=== PATIENT | male | born 1945 | race Hispanic/Latino ===

== ENCOUNTER → 2018-07-01 | Outpatient (CLI) | payer MEDICARE ==
[~2018-07-01] MED LIST: AMIO400T4 PO; APIX5TAB PO; ASPI-1197 PO; ATOR10TA69 PO; IOHEXOL-350 50ML VIAL IV ONE; METO-408 PO; RAMI10CA69 PO; SEPTRA DS PO
== END | disposition home or self-care (01) ==
LOC: OIH 10:10
PROVIDERS: ATTEND Internal Medicine Cardiovascular Disease
DX: I71.4 Abdominal aortic aneurysm, without rupture (principal); I70.0 Atherosclerosis of aorta; I51.7 Cardiomegaly
CPT/HCPCS: 74174; Q9967

== ENCOUNTER 2018-11-20 05:43 | Day surgery (SDC) | payer MEDICARE ==
[2018-11-18 13:06] LABS: CREATININE 1.6 mg/dL (0.5-1.5); POTASSIUM 5.2 mmol/L (3.5-5.1)
[2018-11-18 13:08] LABS: INR 1.06 (0.85-1.15); PARTIAL THROMBOPLASTIN TIME 32.8 SEC (26.3-35.5); PROTHROMBIN TIME 11.1 SEC (9.6-11.6)
[2018-11-18 13:22] VITALS: BP 103/59
[2018-11-18 13:32] LABS: BILIRUBIN,URINE Negative (NEGATIVE); COLOR,URINE Yellow (YELLOW); GLUCOSE, URINE (UA) Negative (NEGATIVE); KETONES,URINE Negative (NEGATIVE); LEUKOCYTE ESTERASE ,URINE Negative (NEGATIVE); NITRATE,URINE Negative (NEGATIVE); OCCULT BLOOD,URINE Negative (NEGATIVE); PROTEIN,URINE Negative (NEGATIVE)
[2018-11-18 13:33] LABS: APPEARANCE,URINE CLEAR (CLEAR)
[2018-11-18 13:38] LABS: BASOPHILS % (AUTO) 0.7 % (0.0-5.0); EOSINOPHILS % (AUTO) 0.1 % (0.0-8.0); HEMATOCRIT 32.3 % (42-54); MEAN CORPUSCULAR HEMOGLOBIN 23.6 pg (27.0-33.0); MEAN CORPUSCULAR VOLUME 76.3 fL (79-99); MONOCYTES % (AUTO) 10.3 % (3.0-13.0); NEUTROPHILS % (AUTO) 65.9 % (40.0-77.0); PLATELET COUNT (AUTO) 388 K/uL (130-400); RED BLOOD CELL COUNT(AUTO) 4.23 MIL/uL (4.50-6.20); RED CELL DISTRIBUTION WIDTH 26.7 % (11.0-15.5); WHITE BLOOD COUNT (AUTO) 8.6 K/uL (4.8-10.8)
--- NOTE | 2018-11-19 10:20 | NUR ---
NOTE REPORTED K+ AND BUN/CREAT TO JOSE SO, NO FURTHER ORDERS GIVEN.
[2018-11-20] VITALS (12 sets, daily range): BP systolic 80–123; BP diastolic 46–60
[~2018-11-20] VITALS: Ht 170.2 cm; Wt 56.4 kg
[~2018-11-20 05:43] MED LIST changes: +AMIO200T5 PO; -AMIO400T4 PO; -ASPI-1197 PO; +FURO40TA5 PO; -IOHEXOL-350 50ML VIAL IV ONE; -METO-408 PO; -RAMI10CA69 PO; -SEPTRA DS PO; +SODIUM CHLORIDE 0.9% 500ML 500 ML IV SCH; +SPIR25TA PO
[2018-11-20] MEDS ORDERED: SODIUM CHLORIDE 0.9% 1000ML 1,000 ML IV ONE (06:22)
[2018-11-20] MEDS ORDERED: HEPARIN SODIUM 1000UNIT/ML 10ML VIAL ONE (09:14)
[2018-11-20] MEDS ORDERED: SODIUM BICARB 50MEQ 50ML VIAL ONE (09:14)
[2018-11-20] MEDS ORDERED: LIDOCAINE HCL 1% 20 ML VIAL ONE (09:14)
[2018-11-20] MEDS ORDERED: IODIXANOL 320 MG/ML 100 ML VIAL ONE (09:15)
[2018-11-20] MEDS ORDERED: NITROGLYCERIN 5 MG/ML 10 ML VIAL IV ONE (09:15)
[2018-11-20] MEDS ORDERED: MEPERIDINE-PF 25 MG/ML SYG ONE (09:40)
[2018-11-20] MEDS ORDERED: MIDAZOLAM HCL 1 MG/ML 2ML VIAL ONE (09:40)
[2018-11-20] MEDS ORDERED: SODIUM CHLORIDE 0.9% 1000ML 1,000 ML IV SCH (10:23)
== END 2018-11-20 16:15 | disposition home or self-care (01) ==
LOC: DAH 05:43
PROVIDERS: ATTEND Internal Medicine Cardiovascular Disease
DX: I77.4 Celiac artery compression syndrome (principal); K55.1 Chronic vascular disorders of intestine; Z79.01 Long term (current) use of anticoagulants
CPT/HCPCS: 36245 ×2; 36415; 71045; 75726 ×2; 80048; 81003; 85025; 85610; 85730; 93005; A4606; C1769 ×2; C1887; C1894 ×2; J1644 ×2; J2175; J2250; J3490 ×2; J7030; Q9967; 75774; 99156; 99157

== ENCOUNTER 2019-05-14 06:00 | Day surgery (SDC) | payer MEDICARE ==
[2019-05-12 13:22] VITALS: BP 100/71
[2019-05-12 13:24] LABS: BASOPHILS % (AUTO) 0.9 % (0.0-5.0); EOSINOPHILS % (AUTO) 1.9 % (0.0-8.0); HEMATOCRIT 45.1 % (42-54); LYMPHOCYTES % (AUTO) 14.8 % (21.0-51.0); MEAN CORPUSCULAR HEMOGLOBIN 29.2 pg (27.0-33.0); MEAN CORPUSCULAR HGB CONC 32.9 g/dL (32.0-36.0); MEAN CORPUSCULAR VOLUME 88.6 fL (79-99); MONOCYTES % (AUTO) 11.9 % (3.0-13.0); NEUTROPHILS % (AUTO) 70.5 % (40.0-77.0); NUCLEATED RED BLOOD CELLS 0.1 % (0.0-0.19); PLATELET COUNT (AUTO) 243 K/uL (130-400); RED BLOOD CELL COUNT(AUTO) 5.09 MIL/uL (4.50-6.20); WHITE BLOOD COUNT (AUTO) 6.8 K/uL (4.8-10.8)
[2019-05-12 13:30] LABS: CREATININE 1.8 mg/dL (0.5-1.5); POTASSIUM 4.9 mmol/L (3.5-5.1)
[2019-05-12 13:34] LABS: INR 1.08 (0.85-1.15); PARTIAL THROMBOPLASTIN TIME 34.3 SEC (26.3-35.5); PROTHROMBIN TIME 11.3 SEC (9.6-11.6)
--- NOTE | 2019-05-13 09:54 | NUR ---
ABNORMAL LABS ABNORMAL LABS REPORTED TO JUDAH JUNE FOR DR. ULLOA BUN 53, CREAT 1.8. NO FURTHER ORDERS GIVEN, MAY PROCEED WITH PLANNED PROCEDURE.
[~2019-05-14] VITALS: Ht 172.7 cm; Wt 60.4 kg
[2019-05-14] VITALS (11 sets, daily range): BP systolic 84–110; BP diastolic 57–66
[~2019-05-14 06:00] MED LIST changes: +CARV3.12 PO; +FERR-82 PO; +LEVO50TA11 PO; +PANT40TA25 PO; -SODIUM CHLORIDE 0.9% 500ML 500 ML IV SCH
[2019-05-14] MEDS ORDERED: SODIUM CHLORIDE 0.9% 1000ML 1,000 ML IV ONE (06:10)
[2019-05-14] MEDS ORDERED: CEFAZOLIN SODIUM 1 GM VIAL ONE (07:07)
[2019-05-14] MEDS ORDERED: BUPIVACAINE/PF 0.25% 50ML VIAL IJ ONE (07:07)
[2019-05-14] MEDS ORDERED: LIDOCAINE HCL 1% MDV 50ML VIAL ONE (07:08)
[2019-05-14] MEDS ORDERED: MIDAZOLAM HCL 1 MG/ML 2ML VIAL ONE ×2 (07:30→08:24)
[2019-05-14] MEDS ORDERED: MEPERIDINE-PF 25 MG/ML SYG ONE ×2 (07:30→08:24)
[2019-05-14] MEDS ORDERED: VANCOMYCIN 1GM+NS 250ML 250 ML IV ONE (08:17)
[2019-05-14] MEDS ORDERED: THROMBIN-JMI 5000 UNIT/VIAL TP ONE (09:03)
[2019-05-14] MEDS ORDERED: ONDANSETRON HCL 4 MG/2 ML VIAL IV PRN (09:15)
[2019-05-14] MEDS ORDERED: ACETAMINOPHEN-CODEINE 300/30MG TAB PO PRN ×2 (09:15)
--- NOTE | 2019-05-14 09:45 | NUR ---
PROCEDURE RECEIVED PT FROM CLINIC ADMINISTRATOR STAFF. PT AAOX3. PRESSURE DRSG TO LEFT UPPER CHEST IN PLACE. SOFT TO TOUCH. NO BLEEDING., OOZING NOTED TO SITE. ICE PACK APPLIED TO SITE. PER DR. ULLOA, PRESSURE DRSG TO BE REMOVED TOMORROW MORNING BY . VERBALIZED UNDERSTANDING. INSTRUCTED PT REQUIRING BEDREST FOR 4 HOURS. PT AND VERBALIZED UNDERSTANDING.
--- NOTE | 2019-05-14 10:04 | NUR ---
SITE CHECK SITE CHECK TO LEFT UPPER CHEST DRY AND INTACT. SOFT TO TOUCH. PRESSURE DRSG AND ICE PACK IN PLACE.
--- NOTE | 2019-05-14 10:15 | NUR ---
SITE CHECK SITE CHECK TO LEFT UPPER CHEST DRY AND INTACT. SOFT TO TOUCH. PRESSURE DRSG AND ICE PACK IN PLACE.
--- NOTE | 2019-05-14 10:30 | NUR ---
SITE CHECK SITE CHECK TO LEFT UPPER CHEST DRY AND INTACT. SOFT TO TOUCH. PRESSURE DRSG AND ICE PACK IN PLACE.
--- NOTE | 2019-05-14 10:45 | NUR ---
SITE CHECK SITE CHECK TO LEFT UPPER CHEST DRY AND INTACT. SOFT TO TOUCH. PRESSURE DRSG AND ICE PACK IN PLACE.
--- NOTE | 2019-05-14 11:15 | NUR ---
SITE CHECK SITE CHECK TO LEFT UPPER CHEST DRY AND INTACT. SOFT TO TOUCH. PRESSURE DRSG AND ICE PACK IN PLACE.
--- NOTE | 2019-05-14 11:45 | NUR ---
SITE CHECK SITE CHECK TO LEFT UPPER CHEST DRY AND INTACT. SOFT TO TOUCH. PRESSURE DRSG AND ICE PACK IN PLACE.
--- NOTE | 2019-05-14 12:45 | NUR ---
SITE CHECK SITE CHECK TO LEFT UPPER CHEST DRY AND INTACT. SOFT TO TOUCH. PRESSURE DRSG AND ICE PACK IN PLACE.
--- NOTE | 2019-05-14 13:18 | NUR ---
BP BP NOTED OF 65/43 P 60 ON RIGHT ARM. RECHECKED ON LEFT ARM 64/41 P 60. ASYMPTOMATIC. PT DENIES FEELING, DIZZY, TIRED. NO BLEEDING, OOZING NOTED TO SITE. JUDAH FARR INFORMED OF BP. ORDERS RECEIVED TO GIVE 250ML BOLUS OF SALINE NOW.
--- NOTE | 2019-05-14 13:30 | NUR ---
BP BP OF 83/56 P 60. ASYMPTOMATIC. WILL CONTINUE TO MONITOR.
[2019-05-14] MEDS ORDERED: CEFAZOLIN SODIUM 1 GM VIAL IVP SCH (14:00)
--- NOTE | 2019-05-14 14:30 | NUR ---
DC INFORMED JUDAH FARR OF BP. ORDERS RECEIVED TO DISCHARGE PT HOME.
--- NOTE | 2019-05-14 15:00 | NUR ---
DISCHARGE ORAL AND WRITTEN DISCHARGE INSTRUCTIONS GIVEN TO PT AND PTS ALONG WITH PRESCRIPTION. SITE TO LEFT UPPER CHEST DRY AND INTACT. PRESSURE DRSG IN PLACE. NO BLEEDING, OOZING NOTED TO SITE. SOFT TO TOUCH.
== END 2019-05-14 15:10 | disposition home or self-care (01) ==
LOC: DAH 06:00
PROVIDERS: ATTEND Internal Medicine Cardiovascular Disease
DX: Z45.02 Encounter for adjustment and management of automatic implantable cardiac defibrillator (principal); I25.5 Ischemic cardiomyopathy; I25.10 Atherosclerotic heart disease of native coronary artery without angina pectoris; I11.0 Hypertensive heart disease with heart failure; I50.32 Chronic diastolic (congestive) heart failure; E78.5 Hyperlipidemia, unspecified; Z79.01 Long term (current) use of anticoagulants; Z79.899 Other long term (current) drug therapy; Z95.5 Presence of coronary angioplasty implant and graft; Z87.891 Personal history of nicotine dependence; Z82.5 Family history of asthma and other chronic lower respiratory diseases
CPT/HCPCS: 33264; 36415; 80048; 85025; 85610; 85730; 93005; A4215; A4216; A4221; A4222; A4223 ×3; A4606; C1882; J0690 ×2; J2175 ×2; J2250 ×2; J3370; J3490 ×3; J7030; 99156; 99157

== ENCOUNTER → 2020-07-13 | Outpatient (CLI) | payer MEDICARE ==
[~2020-07-13] MED LIST changes: -AMIO200T5 PO; +AMIO200T6 PO; -PANT40TA25 PO; +PANT40TA54 PO
== END | disposition home or self-care (01) ==
LOC: SHCH 10:46
PROVIDERS: ATTEND Internal Medicine Cardiovascular Disease
DX: I65.23 Occlusion and stenosis of bilateral carotid arteries (principal); I08.3 Combined rheumatic disorders of mitral, aortic and tricuspid valves; I25.10 Atherosclerotic heart disease of native coronary artery without angina pectoris
CPT/HCPCS: 93306; 93880